=== PATIENT | male | born 1950 | race Caucasian/White ===

== ENCOUNTER 2019-12-09 06:19 | Outpatient (CLI) | payer OTHER ==
[2019-12-15] MEDS ORDERED: METFORMIN HCL750 MG PO (08:48)
[2019-12-15] MEDS ORDERED: ATORVASTATIN CA40 MG PO (08:48)
[2019-12-15] MEDS ORDERED: COZAAR25 MG PO (08:48)
[2019-12-15] MEDS ORDERED: ECOTRIN81 MG PO (08:49)
[2019-12-15] MEDS ORDERED: CIALIS5 MG PO (08:49)
== END 2019-12-09 06:39 | disposition home or self-care (01) ==
LOC: LAB 06:19
PROVIDERS: ATTEND Anesthesiology Pain Medicine
DX: D68.8 Other specified coagulation defects (principal); M48.061 Spinal stenosis, lumbar region without neurogenic claudication; Z03.818 Encounter for observation for suspected exposure to other biological agents ruled out; M99.73 Connective tissue and disc stenosis of intervertebral foramina of lumbar region; M51.37 Other intervertebral disc degeneration, lumbosacral region; I10 Essential (primary) hypertension

== ENCOUNTER 2019-12-16 05:10 | Day surgery (SDC) | payer OTHER ==
[~2019-12-16 05:10] MED LIST: ATORVASTATIN CA40 MG PO; CIALIS5 MG PO; COZAAR25 MG PO; ECOTRIN81 MG PO; METFORMIN HCL750 MG PO
== END 2019-12-16 12:25 | disposition home or self-care (01) ==
LOC: CIR.AMB 05:10
PROVIDERS: ATTEND Anesthesiology Pain Medicine
DX: M99.73 Connective tissue and disc stenosis of intervertebral foramina of lumbar region (principal); M48.061 Spinal stenosis, lumbar region without neurogenic claudication; M51.37 Other intervertebral disc degeneration, lumbosacral region; Z20.828 Contact with and (suspected) exposure to other viral communicable diseases